=== PATIENT | male | born 1950 | race Hispanic/Latino ===

== ENCOUNTER 2019-06-30 17:01 | Observation (INO) | payer MEDICARE ==
[~2019-06-30] VITALS: Ht 180.3 cm; Wt 77.6 kg
[~2019-06-30 17:01] MED LIST: ASPIRIN325 MG PO; ASPIRIN81 MG PO; ATORVASTATIN CA20 MG PO; EFFIENT10 MG PO; LEVAQUIN500 MG PO; LIPITOR20 MG PO; METOPROLOL TART25 MG PO; NITROGLYCERIN0.4 MG SL; PLAVIX75 MG PO; PRAVASTATIN SOD20 MG PO; SIMVASTATIN80 MG PO
[2019-06-30] MEDS ORDERED: ONDANSETRON HCL INJ 2MG/ML 2ML 2 MG/ML VIAL IV ONE (17:41)
[2019-06-30] MEDS ORDERED: MORPHINE SULFATE INJ 4 MG/ML INJ 1ML IV ONE (17:41)
[2019-06-30] MEDS ORDERED: ENOXAPARIN SODIUM INJ 100 MG/ML SYR SC STA (17:41)
[2019-06-30] MEDS ORDERED: SODIUM CHLORIDE 0.9% 1000ML 1,000 ML IV STA (17:41)
[2019-06-30] MEDS ORDERED: PANTOPRAZOLE 40 MG 10ML VIAL IV ONE (17:41)
[2019-06-30] MEDS ORDERED: FAMOTIDINE 20 MG/2 ML VIAL IV ONE (17:41)
[2019-06-30] MEDS ORDERED: METOPROLOL TARTRATE 25 MG TAB PO SCH (17:45)
[2019-06-30] MEDS ORDERED: MORPHINE SULFATE 2 MG/ML SYR 1ML IV PRN (17:45)
[2019-06-30] MEDS ORDERED: ASPIRIN 81 MG CHEW TAB PO ONE (17:45)
[2019-06-30] MEDS ORDERED: ONDANSETRON HCL INJ 2MG/ML 2ML 2 MG/ML VIAL IV PRN (17:45)
[2019-06-30] MEDS ORDERED: ENOXAPARIN SODIUM INJ 100 MG/ML SYR SC SCH (17:45)
[2019-06-30] MEDS ORDERED: NITROGLYCERIN 0.4 MG SUBL SL PRN (17:45)
[2019-06-30] MEDS ORDERED: SODIUM CHLORIDE FLUSH 10 ML SYR INJ PRN (17:45)
[2019-06-30] MEDS ORDERED: ENOXAPARIN INJ 80 MG/0.8 ML SYR SC ONE (18:00)
[2019-06-30] MEDS: FAMOTIDINE 20 MG/2 ML VIAL IV SCH (18:41)
[2019-06-30 18:49] LABS: BASOPHILS % 0.2 % (0.0-1.0); EOSINOPHILS # (AUTO) 0.1 (0.0-0.4); EOSINOPHILS % 2.2 % (0.0-6.0); HEMATOCRIT 44.7 % (38.2-49.6); HEMOGLOBIN 15.2 g/dL (14.0-18.0); LYMPHOCYTES # (AUTO) 1.5 (1.0-3.2); LYMPHOCYTES % 22.9 % (18.0-39.1); MEAN CORPUSCULAR VOLUME 91.2 fL (81-99); MONOCYTES # (AUTO) 0.6 (0.2-0.8); MONOCYTES % 8.8 % (4.4-11.3); NEUTROPHILS # (AUTO) 4.2 (2.1-6.9); NEUTROPHILS % 65.3 % (38.7-80.0); PLATELET COUNT 200 x10e3/uL (140-360)
[2019-06-30] MEDS: METOPROLOL TARTRATE 25 MG TAB PO SCH (18:57)
[2019-06-30] MEDS: ENOXAPARIN INJ 80 MG/0.8 ML SYR SC SCH (18:57)
[2019-06-30 19:01] LABS: INR 0.91; PROTHROMBIN TIME 12.7 seconds (11.9-14.5)
[2019-06-30 19:02] LABS: PARTIAL THROMBOPLASTIN TIME 33.9 seconds (23.8-35.5)
[2019-06-30 19:12] LABS: ALANINE AMINOTRANSFERASE 20 IU/L (0-55); ALBUMIN 4.3 g/dL (3.5-5.0); ALBUMIN/GLOBULIN RATIO 1.4 (0.8-2.0); ALKALINE PHOSPHATASE 80 IU/L (40-150); ANION GAP 11.9 mmol/L (8-16); BLOOD UREA NITROGEN 10 mg/dL (7-26); BUN/CREATININE RATIO 22 (6-25); CALCIUM 9.5 mg/dL (8.4-10.2); CARBON DIOXIDE 25 mmol/L (22-29); CHLORIDE 104 mmol/L (98-107); CREATININE, SERUM 0.45 mg/dL (0.72-1.25); EST GLOMERULAR FILTRATION RATE > 60 ML/MIN (60-); GLUCOSE 98 mg/dL (74-118); LIPASE 21 U/L (8-78); MAGNESIUM 2.3 MG/DL (1.3-2.1); POTASSIUM 3.9 mmol/L (3.5-5.1); SODIUM 137 mmol/L (136-145)
[2019-06-30 19:28] LABS: CREATINE KINASE 183 IU/L (30-200)
--- NOTE | 2019-06-30 19:31 | Diagnostic Imaging Report ---
EXAMINATION: CHEST SINGLE (PORTABLE) INDICATION: Chest pressure ^ERMD ORDER ^[id number] ^1913 ^Y COMPARISON: None FINDINGS: TUBES and LINES: None. LUNGS: Lungs are well inflated. Lungs are clear. There is no evidence of pneumonia or pulmonary edema. PLEURA: No pleural effusion or pneumothorax. HEART AND MEDIASTINUM: The cardiomediastinal silhouette is unremarkable. BONES AND SOFT TISSUES: No acute osseous lesion. Soft tissues are unremarkable. UPPER ABDOMEN: No free air under the diaphragm. IMPRESSION: No acute thoracic abnormality. Signed by: Dr. Pastor Samuels M.D. on 06/30/2019 7:28 PM
[2019-06-30 19:35] LABS: THYROID STIMULATING HORMONE 1.439 uIU/mL (0.350-4.940)
[2019-06-30 19:46] LABS: BILIRUBIN,URINE NEGATIVE (NEGATIVE); CLARITY,URINE CLEAR (CLEAR); COLOR,URINE YELLOW (YELLOW); KETONES,URINE NEGATIVE (NEGATIVE); LEUKOCYTE ESTERASE ,URINE NEGATIVE (NEGATIVE); NITRITE,URINE NEGATIVE (NEGATIVE); PROTEIN,URINE DIPSTICK NEGATIVE (NEGATIVE); URINE UROBILINOGEN 0.2 mg/dL (0.2 - 1)
[2019-06-30 20:00] LABS: AMORPHOUS SEDIMENT,URINE FEW (FEW); BACTERIA,URINE RARE /HPF
[2019-06-30] MEDS ORDERED: ATORVASTATIN 20 MG TAB PO SCH (21:00)
[2019-06-30 21:17] VITALS: BP 115/63
[2019-06-30] MEDS: ATORVASTATIN 40 MG TAB PO SCH (23:09)
[2019-07-01] VITALS (8 sets, daily range): BP systolic 104–127; BP diastolic 58–69
--- NOTE | 2019-07-01 00:39 | NUR ---
PT 'S HOME MEDICATIONS RECONCILED,PT REPORTED THAT HE NO LONGER TAKES PRASUGREL(EFFIENT),UPDATED ON THE PT'S HOME MEDICATION LIST.
[2019-07-01] MEDS ORDERED: ENOXAPARIN INJ 80 MG/0.8 ML SYR SC SCH (06:00)
[2019-07-01] MEDS: METOPROLOL TARTRATE 25 MG TAB PO SCH ×2 (06:18→17:44)
[2019-07-01] MEDS: FAMOTIDINE 20 MG/2 ML VIAL IV SCH (06:18)
[2019-07-01] MEDS: ENOXAPARIN INJ 80 MG/0.8 ML SYR SC SCH ×2 (06:20→17:45)
--- NOTE | 2019-07-01 06:30 | NUR ---
CONSULT TO DR HUA CALLED.PROMPTED TO LEAVE MESSAGE.MESSAGE LEFT WITH CALL BACK NUMBER.
[2019-07-01 06:36] LABS: BASOPHILS % 0.2 % (0.0-1.0); EOSINOPHILS # (AUTO) 0.2 (0.0-0.4); EOSINOPHILS % 3.7 % (0.0-6.0); HEMATOCRIT 39.4 % (38.2-49.6); HEMOGLOBIN 13.6 g/dL (14.0-18.0); LYMPHOCYTES # (AUTO) 1.5 (1.0-3.2); LYMPHOCYTES % 29.8 % (18.0-39.1); MEAN CORPUSCULAR HEMOGLOBIN 31.1 pg (28-32); MEAN CORPUSCULAR HGB CONC 34.5 g/dL (31-35); MONOCYTES # (AUTO) 0.6 (0.2-0.8); MONOCYTES % 11.9 % (4.4-11.3); NEUTROPHILS # (AUTO) 2.6 (2.1-6.9); PLATELET COUNT 173 x10e3/uL (140-360); RED BLOOD COUNT 4.38 x10e6/uL (4.3-5.7)
[2019-07-01 06:44] LABS: CREATINE KINASE MB 3.8 ng/mL (0-5.0)
[2019-07-01 07:13] LABS: ALANINE AMINOTRANSFERASE 19 IU/L (0-55); ALBUMIN 3.4 g/dL (3.5-5.0); ALBUMIN/GLOBULIN RATIO 1.4 (0.8-2.0); ALKALINE PHOSPHATASE 71 IU/L (40-150); ANION GAP 12.6 mmol/L (8-16); BLOOD UREA NITROGEN 12 mg/dL (7-26); BUN/CREATININE RATIO 17 (6-25); CALCIUM 7.9 mg/dL (8.4-10.2); CARBON DIOXIDE 21 mmol/L (22-29); CHLORIDE 109 mmol/L (98-107); CHOL/HDL RATIO 4.2 (3.9-4.7); CHOLESTEROL 108 MD/DL (0-199); CREATININE, SERUM 0.72 mg/dL (0.72-1.25); EST GLOMERULAR FILTRATION RATE > 60 ML/MIN (60-); GLUCOSE 95 mg/dL (74-118); HDL CHOLESTEROL 26 MG/DL (40-60); LDL CHOLESTEROL 50 MG/DL (60-130); MAGNESIUM 2.3 MG/DL (1.3-2.1); PHOSPHORUS 2.8 MG/DL (2.3-4.7); POTASSIUM 3.6 mmol/L (3.5-5.1); SODIUM 139 mmol/L (136-145); TRIGLYCERIDES 161 MG/DL (0-149)
--- NOTE | 2019-07-01 07:15 | NUR ---
DR PEREZ IN UNIT,N/O RECEIVED TO STOP MEDICATION EFFIENT.
--- NOTE | 2019-07-01 07:16 | NUR ---
REPORT GIVEN TO ONCOMING NURSE,WALKING ROUNDS MADE.PT RESTING IN BED WITH NO S/S OF DISTRESS.
--- NOTE | 2019-07-01 07:34 | NUR ---
H&P cc: cp HPI: 68yoM, PCP , developed dizziness and left chest pressure with left face and left hand numbness. Last stress test 2018 was negative per pt. PMH: CAD s/p stent 11/2014, HTN, HLD, stroke PShx: coronary stent 2014 Allergies; see emr FH/SH; ; no cigs Meds; see MAR ROS: no f/c/s/N/V/D/SOUZA/vision changes/skin rash/back pain/leg pain v/s; revd PE tired appearing anicteric ns1s2 mod bs soft nt nd no e/t skin dry n. affect a&ox3; maloney labs/med; revd A/P: 68yoM Atypical CP CAD with hx stent HTn HLD PLAN BB/lovenox/asa/statin f/u echo and cardio eval Lovenox/pepcid Carlitos Eubanks MD, PhD.
[2019-07-01] MEDS: ASPIRIN 81 MG ENTERIC COATED PO SCH (08:59)
[2019-07-01] MEDS: LISINOPRIL 10 MG TAB PO SCH (08:59)
[2019-07-01] MEDS ORDERED: PRASUGREL 10 MG TAB PO SCH (09:00)
[2019-07-01] MEDS ORDERED: ONDANSETRON HCL 4 MG ORAL DISINTEGRATING TAB PO PRN (11:30)
[2019-07-01] MEDS ORDERED: REGADENOSON 0.4 MG/5 ML SYR IV ONE (14:11)
[2019-07-01 15:58] LABS: CREATINE KINASE MB 2.8 ng/mL (0-5.0)
[2019-07-01] MEDS: FAMOTIDINE 20 MG TAB PO SCH (17:44)
--- NOTE | 2019-07-01 19:07 | NUR ---
RECEIVED REPORT FROM PREVIOUS NURSE. CALL LIGHT WITHIN REACH. PATIENT SITTING IN THE CHAIR
[2019-07-01] MEDS: ATORVASTATIN 40 MG TAB PO SCH (21:38)
[2019-07-02 00:13] VITALS: BP 126/66
--- NOTE | 2019-07-02 03:31 | Consultation ---
DATE OF CONSULTATION: 07/01/2019 Cardiology consultation REASON FOR CONSULTATION: Chest pain. HISTORY OF PRESENT ILLNESS: This is a 68-year-old male with history of coronary artery disease, status post RCA, PCI, and hyperlipidemia, who presents with complaints of chest pain. He reports he has been having chest pressure for the last three days, which has been constant since onset. He states the pain is 4/10 in severity and associated with dizziness with radiation to the left arm and face, which he described as numbness. There is no shortness of breath, nausea, diaphoresis. Denies any edema, orthopnea or PND. REVIEW OF SYSTEMS: Negative except as per HPI. PAST MEDICAL HISTORY: 1. Coronary artery disease, status post STEMI with RCA, PCI. 2. Hyperlipidemia. PAST SURGICAL HISTORY: PCI. ALLERGIES: NO KNOWN DRUG ALLERGIES. MEDICATIONS: Please see medication list. SOCIAL HISTORY: No tobacco, alcohol, or illicit drugs. FAMILY HISTORY: Pertinent for father with heart disease. PHYSICAL EXAMINATION: VITAL SIGNS: Temperature 96.9 degrees, pulse 54, respiratory rate 20, blood pressure 111/59, oxygen saturation 98%. GENERAL: Well-developed, well-nourished man, in no acute distress, awake, alert. HEENT: Normocephalic, atraumatic. Pupils are equal. No scleral icterus. NECK: Supple. No thyromegaly or cervical lymphadenopathy. No carotid bruits. LUNGS: Clear to auscultation bilaterally. No wheeze or crackles. CARDIOVASCULAR: Normal rate, regular rhythm. No murmur. Normal S1, S2. ABDOMEN: Soft, nontender. EXTREMITIES: No edema. NEUROLOGIC: Nonfocal exam. LABORATORY DATA: WBC 4.87, hemoglobin 13.6, hematocrit 39.4, platelets 173. Sodium 139, potassium 3.6, chloride 109, CO2 21, BUN 12, creatinine 0.72. Troponin 0.118. Triglycerides 161, cholesterol 108, LDL 50, HDL 26. TELEMETRY: Sinus bradycardia. IMPRESSION: 1. Chest pain. 2. Coronary artery disease, status post RCA/STEMI, status post PCI in 2014. 3. Hypertension. 4. Dyslipidemia. RECOMMENDATIONS: The patient has ruled out for myocardial portion on serial cardiac biomarkers given risk factors. Plan to proceed with exercise nuclear stress test to evaluate for ischemia. Further recommendations pending test results. Continue aspirin and Effient as no evidence of myocardial infarction, can stop Lovenox and resume dual anti-platelet therapy. Continue current cardiac medications otherwise. Further recommendations pending test results. Thank you for this consult. We will continue to follow. Jenae Gabriel MD ABS/MODL /[id number]
[2019-07-02 05:42] VITALS: BP 119/74
--- NOTE | 2019-07-02 05:53 | NUR ---
IM- progress note O/N no events ROS: no f/c/s/N/V/D/SOUZA/vision changes/skin rash/back pain/leg pain v/s; revd PE tired appearing anicteric ns1s2 mod bs soft nt nd no e/t skin dry n. affect a&ox3; maloney labs/med; revd A/P: 68yoM Atypical CP CAD with hx stent HTn HLD PLAN BB/lovenox/asa/statin f/u echo and cardio eval Lovenox/pepcid d/c once cleared by cardio. Carlitos Eubanks MD, PhD.
[2019-07-02] MEDS ORDERED: FAMOTIDINE20 MG PO (05:54)
[2019-07-02] MEDS ORDERED: LISINOPRIL10 MG PO (05:54)
[2019-07-02] MEDS: ENOXAPARIN INJ 80 MG/0.8 ML SYR SC SCH (06:05)
[2019-07-02] MEDS: METOPROLOL TARTRATE 25 MG TAB PO SCH (06:05)
[2019-07-02] MEDS: FAMOTIDINE 20 MG TAB PO SCH (06:05)
--- NOTE | 2019-07-02 07:27 | NUR ---
Gave report to oncoming nurse. Patient in bed. Call light within reach.
[2019-07-02 08:33] VITALS: BP 128/75
[2019-07-02 09:57] VITALS: BP 128/75
[2019-07-02] MEDS: LISINOPRIL 10 MG TAB PO SCH (09:57)
[2019-07-02] MEDS: ASPIRIN 81 MG ENTERIC COATED PO SCH (09:57)
--- NOTE | 2019-07-03 09:04 | NUR ---
D/C summary Principal Dx: Atypical CP Secondary Dx: CAD with hx stent HTn HLD PLAN BB/lovenox/asa/statin f/u echo and cardio eval Lovenox/pepcid d/c once cleared by cardio. Echo reported as normal; Stress test reported as negative d/c home f/u with PCP 1 week stable d/c>35mins Carlitos Eubanks MD, PhD.
== END 2019-07-02 11:30 | disposition home or self-care (01) ==
LOC: ER 17:01 → INTOOBSV 18:09 → ERHOLD 18:09 → MED/SURG 20:35
PROVIDERS: ADMIT Internal Medicine; ATTEND Internal Medicine
DX: R07.89 Other chest pain (principal); R42 Dizziness and giddiness; E78.5 Hyperlipidemia, unspecified; I10 Essential (primary) hypertension; Z95.5 Presence of coronary angioplasty implant and graft; I25.10 Atherosclerotic heart disease of native coronary artery without angina pectoris; I25.2 Old myocardial infarction; Z86.73 Personal history of transient ischemic attack (TIA), and cerebral infarction without residual deficits
CPT/HCPCS: 36415 ×2; 71045; 78452; 80053 ×2; 80061; 81001; 82550 ×2; 82553 ×2; 83690; 83735 ×2; 83880; 84100; 84443; 84484 ×2; 85025 ×2; 85610; 85730; 87086; 93005; 93017; 93306; 99284; A9502; C9113; G0378 ×3; J1650 ×3; J2405; J2785; J7030

== ENCOUNTER → 2020-01-03 | Day surgery (SDC) | payer MEDICARE ==
[~2020-01-03] MED LIST changes: +FAMOTIDINE20 MG PO; +LIDOCAINE HCL 2% LOCAL 20 ML VIAL ONE; +LISINOPRIL10 MG PO
--- OUTSIDE RECORDS SUMMARY | 2020-01-03 09:25 | XMS REPORT ---
Author Author [facility] Organization [facility] Address Unknown Phone Unavailable Care Team Providers Care Flume Worker Name Role Phone WIL POMPA MD PP DERRICK PEREZ Unavailable Unavailable Payers Payer Name Policy Type Policy Number Effective Date Expiration D ate Ana Mariana [employer] [id number] 2018 00:00:00 Problems Condition Name Condition Details Condition Category Status Onset Date Resolution Date Last Treatment Date Treating Clinician Comments Chest pain Chest pain Problem Active 2015-08-19 00:00:00 ST elevation myocardial infarction (STEMI) ST elevatio n myocardial infarction (STEMI) Problem Active 2015-01-29 00:00:00 Hyperlipidemia Hyperlipidemia Problem Active Allergies, Adverse Reactions, Alerts This patient has no known allergies or adverse reactions. Medications Ordered Medication Name Filled Medication Name Start Date Stop Da te Current Medication? Ordering Clinician Indication Dosage Frequency Signature (SIG) Comments Components Famotidine 20 Mg Tab Famotidine 20 Mg Tab 2019-07-02 00:00:00 Yes Derrick Perez Md 20 Every 12 Hours Lisinopril 10 Mg Tablet Lisinopril 10 Mg Tablet 2019-07-02 00:00:00 Yes Derrick Perez Md 10 Daily Aspirin 325 Mg Tablet Aspirin 325 Mg Tablet Yes 325 Daily Atorvastatin Calcium 20 Mg Tablet Atorvastatin Calcium 20 Mg Tablet Yes 80 Today At 9:00PM Metoprolol Tartrate 25 Mg Tablet Metoprolol Tartrate 25 Mg Tablet Yes 12.5 Twice A Day Nitroglycerin 0.4 Mg Tab.subl Nitroglycerin 0.4 Mg Tab.subl Yes .4 Every 5 Minutes as needed for Chest Pain Prasugrel Hcl (Effient) 10 Mg Tablet, 10 Mg Oral Prasu grel Hcl (Effient) 10 Mg Tablet, 10 Mg Oral 2019-06-30 00:00:00 No 10 Daily Clopidogrel Bisulfate (Plavix) 75 Mg Tablet, 75 Mg Ora l Clopidogrel Bisulfate (Plavix) 75 Mg Tablet, 75 Mg Oral 2015-01-31 00:00:00 No 75 Daily Levofloxacin (Levaquin) 500 Mg Tablet, 500 Mg Oral Lev ofloxacin (Levaquin) 500 Mg Tablet, 500 Mg Oral 2015-01-31 00:00:00 No 500 Daily Metoprolol Tartrate 25 Mg Tablet, 12.5 Mg Oral Metopro lol Tartrate 25 Mg Tablet, 12.5 Mg Oral 2015-01-31 00:00:00 No 12.5 Daily Simvastatin 80 Mg Tablet, 80 Mg Oral Simvastatin 80 Mg Tablet, 8 0 Mg Oral 2015-01-31 00:00:00 No 80 Bedtime Aspirin 81 Mg Tab.chew, 81 Mg Oral Aspirin 81 Mg Tab.chew, 81 Mg Oral 2014-12-01 00:00:00 No 81 Daily Pravastatin Sodium 20 Mg Tablet, 20 Mg Oral Pravastati n Sodium 20 Mg Tablet, 20 Mg Oral 2014-12-01 00:00:00 No 20 Daily Atorvastatin Calcium (Lipitor) 20 Mg Tablet, 20 Mg Ora l Atorvastatin Calcium (Lipitor) 20 Mg Tablet, 20 Mg Oral 2014-11-29 00:00:00 No 20 Daily Encounters Start Date/Time End Date/Time Encounter Type Admission Type [facility] Care Department Encounter ID 2019-06-30 18:09:00 2019-07-02 11:30:00 Discharged Inpatient (obs) [address] [facility] [id number] Results Test Description Test Time Test Comments Text Results Atomic Results Result Comments Stress Test - Treadmill ONLY 2019-07-07 14:24:00 [place] [id number] [place] [address] Patient Name : KENYA MANCERA MR #: [id number] : 1950 Age/Sex: 68/M Adm Physician : DERRICK PEREZ MD Admit Date : 06/30/19 Location : MED/SURG Room/Bed : [facility] REPORT: Myoview Stress Test DATE OF STUDY: 07/01/2019 10:37:00 Stress Test - Treadmill ONLY PROCEDURE TITLE: Rest/stress single isotope SPECT imaging with pharmacologic stress and gated SPECT imaging. INDICATION: Chest pain. PROCEDURE IN DETAIL: Pharmacologic stress testing was performed with regadenoson per protocol. The heart rate was 56 beats per minute at rest and increased to 79 beats per minute during regadenoson infusion. The rest blood pressure was 142/79 mmHg and decreased to 136/72 mmHg, which is a normal response. Resting electrocardiogram demonstrated sinus bradycardia with ST and T-wave abnormalities. There were no ST-segment changes suggestive of myocardial ischemia. Myocardial perfusion imaging was performed at stress following the injection of 11 mCi of tetrofosmin. At peak pharmacologic effect, the patient was injected with 20.1 mCi of tetrofosmin. Gated post- stress tomographic imaging was performed. FINDINGS: The overall quality of study is fair. Left ventricular cavity is noted to be normal size on the rest and stress studies. SPECT images demonstrate a small moderate perfusion defect in the inferior wall at rest that improves with stress. Gated SPEC T imaging reveals normal myocardial thickening and wall motion. Left ventricular ejection fraction was calculated to be 59%. IMPRESSION: Myocardial perfusion imaging is abnormal. There is a small nontransmural scar in the basal inferior wall, cannot rule out attenuation artifact. Overall, left ventricular systolic function was normal without regional wall motion abnormalities. Hood Gabriel MD ABS/SULEIMANL /[id number] Signature Date Dictated By: HOOD GABRIEL MD Transcribed By: MODL on 07/07/19 <Electronically signed by HOOD GABRIEL MD><<Signature on File>>07/24/19 3404 COPY TO: Creatine Kinase MB 2019-07-01 16:02:00 Creatine Kinase MB (test code = 38553-1) 2.80 0-5.0 Troponin [id number] 15:21:00* Test Item Value Reference Range Comments Troponin I (test code = KYN1433) 0.118 0-0.300 Creatine Lfzudy5315-40-17 13:27:00* Test Item Value Reference Range Comments Creatine Kinase (test code = 2157-6) 153 30-200 Sodium Nxqng9274-00-80 07:18:00* Test Item Value Reference Range Comments Sodium Level (test code = 2951-2) 139 136-145 Potassium Itkpq3900-18-69 07:18:00* Test Item Value Reference Range Comments Potassium Level (test code = 2823-3) 3.6 3.5-5.1 Chloride Snjjn5917-05-88 07:18:00* Test Item Value Reference Range Comments Chloride Level (test code = 2075-0) 109 98-107 Carbon Dioxide Qgnpt6806-78-46 07:18:00* Test Item Value Reference Range Comments Carbon Dioxide Level (test code = 2028-9) 21 22-29 Anion Zni6464-04-63 07:18:00* Test Item Value Reference Range Comments Anion Gap (test code = 80459-1) 12.6 8-16 Blood Urea Kbaqwxwz8009-12-60 07:18:00* Test Item Value Reference Range Comments Blood Urea Nitrogen (test code = 3094-0) 12 7-26 Voawnjlsag4813-19-45 07:18:00* Test Item Value Reference Range Comments Creatinine (test code = 2160-0) 0.72 0.72-1.25 BUN/Creatinine Fmaek2926-47-97 07:18:00* Test Item Value Reference Range Comments BUN/Creatinine Ratio (test code = 3097-3) 17 6-25 Estimat Glomerular Filtration Jkox3873-38-09 07:18:00* Test Item Value Reference Range Comments Estimat Glomerular Filtration Rate (test code = 110838697) > 60 >60 Ranges were taken from the National Kidney Disease Education Program and the [facility] [employer] literature.Reference ranges:60 or greater: Cfeowv98-20 ( for 3 consecutive months): Chronic kidney disease 15 or less: Kidney failure Glucose Vzpob1207-01-77 07:18:00* Test Item Value Reference Range Comments Glucose Level (test code = WQS7109) 95 74-118 Calcium Syxok1615-28-10 07:18:00* Test Item Value Reference Range Comments Calcium Level (test code = 80704-7) 7.9 8.4-10.2 Phosphorus Gdetw3035-34-37 07:18:00* Test Item Value Reference Range Comments Phosphorus Level (test code = WIY0852) 2.8 2.3-4.7 Magnesium Wbzmt3214-23-77 07:18:00* Test Item Value Reference Range Comments Magnesium Level (test code = 95046-7) 2.3 1.3-2.1 Total Ozyzifkmn7449-53-48 07:18:00* Test Item Value Reference Range Comments Total Bilirubin (test code = 1975-2) 0.6 0.2-1.2 Aspartate Amino Transf (AST/SGOT)2019-07-01 07:18:00* Test Item Value Reference Range Comments Aspartate Amino Transf (AST/SGOT) (test code = Aspartate Amino Transf (AST/SGOT)) 22 5-34 Alanine Aminotransferase (ALT/SGPT)2019-07-01 07:18:00* Test Item Value Reference Range Comments Alanine Aminotransferase (ALT/SGPT) (test code = 1742-6) 19 0-55 Total Xrclfee3138-10-21 07:18:00* Test Item Value Reference Range Comments Total Protein (test code = 2885-2) 5.8 6.5-8.1 Euxnuuu5742-29-88 07:18:00* Test Item Value Reference Range Comments Albumin (test code = 1751-7) 3.4 3.5-5.0 Rcutxgkz5334-25-20 07:18:00* Test Item Value Reference Range Comments Globulin (test code = 35001-6) 2.4 2.3-3.5 Albumin/Globulin Pzfua8680-01-97 07:18:00* Test Item Value Reference Range Comments Albumin/Globulin Ratio (test code = 1759-0) 1.4 0.8- 2.0 Alkaline Fwwtawfopod7373-78-15 07:18:00* Test Item Value Reference Range Comments Alkaline Phosphatase (test code = 6768-6) 71 40-150 Triglycerides Xlomq2390-93-04 07:18:00* Test Item Value Reference Range Comments Triglycerides Level (test code = 2571-8) 161 0-149 Cholesterol Rzijs7438-04-26 07:18:00* Test Item Value Reference Range Comments Cholesterol Level (test code = 2093-3) 108 0-199 Less than 200 mg/dL Low Vjsk110 - 239 mg/dL Borderline Kiuh776 m g/dl and greater High Risk LDL Olzkurvlxny6369-46-63 07:18:00* Test Item Value Reference Range Comments LDL Cholesterol (test code = 2089-1) 50 60-130 HDL Zwuwcbmeard1587-10-47 07:18:00* Test Item Value Reference Range Comments HDL Cholesterol (test code = 2085-9) 26 40-60 Cholesterol/HDL Huqgk2283-50-16 07:18:00* Test Item Value Reference Range Comments Cholesterol/HDL Ratio (test code = 9830-1) 4.2 3.9-4 .7 White Blood Flljb4666-64-82 06:47:00* Test Item Value Reference Range Comments White Blood Count (test code = 6690-2) 4.87 4.8-10.8 Red Blood Oxluw6538-11-71 06:47:00* Test Item Value Reference Range Comments Red Blood Count (test code = 789-8) 4.38 4.3-5.7 Mozihzbafx8707-25-44 06:47:00* Test Item Value Reference Range Comments Hemoglobin (test code = 45239-5) 13.6 14.0-18.0 Rgloeifcro6830-95-37 06:47:00* Test Item Value Reference Range Comments Hematocrit (test code = 4544-3) 39.4 38.2-49.6 Mean Corpuscular Yprebt0206-09-35 06:47:00* Test Item Value Reference Range Comments Mean Corpuscular Volume (test code = 787-2) 90.0 81-9 9 Mean Corpuscular Nlumavswjg5201-47-14 06:47:00* Test Item Value Reference Range Comments Mean Corpuscular Hemoglobin (test code = 785-6) 31.1 28-32 Mean Corpuscular Hemoglobin Sgounqf7272-39-48 06:47:00* Test Item Value Reference Range Comments Mean Corpuscular Hemoglobin Concent (test code = 786-4) 34.5 31-35 Red Cell Distribution Pynsb5218-65-60 06:47:00* Test Item Value Reference Range Comments Red Cell Distribution Width (test code = 52159-4) 12.0 11.7-14.4 Platelet Sxfjn1169-25-81 06:47:00* Test Item Value Reference Range Comments Platelet Count (test code = 777-3) 173 140-360 Neutrophils (%) (Auto)2019-07-01 06:47:00* Test Item Value Reference Range Comments Neutrophils (%) (Auto) (test code = 69903-7) 54.0 38. 7-80.0 Lymphocytes (%) (Auto)2019-07-01 06:47:00* Test Item Value Reference Range Comments Lymphocytes (%) (Auto) (test code = 736-9) 29.8 18.0- 39.1 Monocytes (%) (Auto)2019-07-01 06:47:00* Test Item Value Reference Range Comments Monocytes (%) (Auto) (test code = 5905-5) 11.9 4.4-11 .3 Eosinophils (%) (Auto)2019-07-01 06:47:00* Test Item Value Reference Range Comments Eosinophils (%) (Auto) (test code = 713-8) 3.7 0.0-6 .0 Basophils (%) (Auto)2019-07-01 06:47:00* Test Item Value Reference Range Comments Basophils (%) (Auto) (test code = 706-2) 0.2 0.0-1.0 IM GRANULOCYTES %2019-07-01 06:47:00* Test Item Value Reference Range Comments IM GRANULOCYTES % (test code = IM GRANULOCYTES %) 0.4 0.0-1.0 Neutrophils # (Auto)2019-07-01 06:47:00* Test Item Value Reference Range Comments Neutrophils # (Auto) (test code = 751-8) 2.6 2.1-6.9 Lymphocytes # (Auto)2019-07-01 06:47:00* Test Item Value Reference Range Comments Lymphocytes # (Auto) (test code = 67728-0) 1.5 1.0-3 .2 Monocytes # (Auto)2019-07-01 06:47:00* Test Item Value Reference Range Comments Monocytes # (Auto) (test code = 742-7) 0.6 0.2-0.8 Eosinophils # (Auto)2019-07-01 06:47:00* Test Item Value Reference Range Comments Eosinophils # (Auto) (test code = 711-2) 0.2 0.0-0.4 Basophils # (Auto)2019-07-01 06:47:00* Test Item Value Reference Range Comments Basophils # (Auto) (test code = 704-7) 0.0 0.0-0.1 Absolute Immature Granulocyte (iezt4488-00-54 06:47:00* Test Item Value Reference Range Comments Absolute Immature Granulocyte (auto (cristy t code = Absolute Immature Granulocyte (auto) 0.02 0-0.1 Urine QMD6000-79-12 20:00:00* Test Item Value Reference Range Comments Urine WBC (test code = 5821-4) NONE 0-5 Urine QWX8452-50-88 20:00:00* Test Item Value Reference Range Comments Urine RBC (test code = 49764-1) NONE 0-5 Urine Shgvtzxq2939-46-21 20:00:00* Test Item Value Reference Range Comments Urine Bacteria (test code = 43826-2) RARE NONE Urine Epithelial Twmvw4497-52-78 20:00:00* Test Item Value Reference Range Comments Urine Epithelial Cells (test code = 36060-0) NONE NON E Urine Amorphous Hdbiqfpg9320-90-28 20:00:00* Test Item Value Reference Range Comments Urine Amorphous Sediment (test code = 8246-1) FEW FE W Urine Ytgcn5431-07-40 20:00:00* Test Item Value Reference Range Comments Urine Sperm (test code = 8248-7) PRESENT NONE Urine Tdlmj4746-82-74 19:47:00* Test Item Value Reference Range Comments Urine Color (test code = 5778-6) YELLOW YELLOW Urine Lsehdef1957-00-31 19:47:00* Test Item Value Reference Range Comments Urine Clarity (test code = 13477-8) CLEAR CLEAR Urine Specific Fwlaogt0461-55-79 19:47:00* Test Item Value Reference Range Comments Urine Specific [place] (test code = 5811-5) 1.010 1.01 0-1.025 Urine kW7163-61-60 19:47:00* Test Item Value Reference Range Comments Urine pH (test code = 70816-3) 6 5-7 Urine Leukocyte Rrryklub3133-34-09 19:47:00* Test Item Value Reference Range Comments Urine Leukocyte Esterase (test code = 27824-7) NEGATIVE N EGATIVE Urine Qcxnsgt9011-35-01 19:47:00* Test Item Value Reference Range Comments Urine Nitrite (test code = 97623-2) NEGATIVE NEGATIVE Urine Wrzcigd5594-96-73 19:47:00* Test Item Value Reference Range Comments Urine Protein (test code = 21226-8) NEGATIVE NEGATIVE Urine Glucose (UA)2019-06-30 19:47:00* Test Item Value Reference Range Comments Urine Glucose (UA) (test code = 65420-1) NEGATIVE NEGATIV E Urine Nwtqxte1199-75-00 19:47:00* Test Item Value Reference Range Comments Urine Ketones (test code = 23271-5) NEGATIVE NEGATIVE Urine Wmnbnletpcwv6131-47-28 19:47:00* Test Item Value Reference Range Comments Urine Urobilinogen (test code = 75156-8) 0.2 0.2-1 Urine Rnagxxkft4008-91-53 19:47:00* Test Item Value Reference Range Comments Urine Bilirubin (test code = 1977-8) NEGATIVE NEGATIVE Urine Nqgka3667-06-21 19:47:00* Test Item Value Reference Range Comments Urine Blood (test code = 96509-2) TRACE NEGATIVE Thyroid Stimulating Hormone (TSH)2019-06-30 19:35:00* Test Item Value Reference Range Comments Thyroid Stimulating Hormone (TSH) (test code = 02244-7) 1.439 0.350-4.940 CHEST SINGLE (PORTABLE)2019-06-30 19:27:00 [facility] [address] [address] Patient Name: KENYA MANCERA MR #: [id number] : 1950 Age/Sex: 68/M Req #: [id number] Adm Physician: DERRICK PEREZ MD Ordered by: KILEY CARBALLO MD, MD Report #: [id number] Location: [facility] Room/Bed: [place] [address] Procedure: [id number] 6 DX/CHEST SINGLE (PORTABLE) Exam Date: 06/30/19 Time: 1912 REPORT STATUS: Signed EXAMINATION: CHEST SINGLE (PORTABLE) INDICATION: Chest pressure ERMD ORDER [id number] 1912 Y COMPARISON: None FIN DINGS: TUBES and LINES: None. LUNGS: Lungs are well inflated. Lungs ar e clear. There is no evidence of pneumonia or pulmonary edema. PLEURA: No pleural effusion or pneumothorax. HEART AND MEDIASTINUM: The cardiomed iastinal silhouette is unremarkable. BONES AND SOFT TISSUES: No acute osseous lesion. Soft tissues are unremarkable. UPPER ABDOMEN: No free ai r under the diaphragm. IMPRESSION: No acute thoracic abnormality. Signed by: Dr. Luz Angulo M.D. on 06/30/2019 7:28 PM Dictated By: LUZ ANGULO MD, MD 27 Transcribed By: HITESH on 06/30/191927 COPY TO: KILEY CARBALLO B-Type Natriuretic Vzymfzw0676-84-14 19:17:00* Test Item Value Reference Range Comments B-Type Natriuretic Peptide (test code = 24227-5) 83.4 0-100 Mohkga6956-52-92 19:13:00* Test Item Value Reference Range Comments Lipase (test code = 3040-3) 21 8-78 Prothrombin Hpej1999-71-99 19:04:00* Test Item Value Reference Range Comments Prothrombin Time (test code = 5902-2) 12.7 11.9-14.5 Prothromb Time International Czaiv7612-10-61 19:04:00* Test Item Value Reference Range Comments Prothromb Time International Ratio (test code = 6301-6) 0.91 Oral Anticoagulant Therapy INR Values:1. Low Intensity Therapy 1.5 - 2.02 . Moderate Intensity Therapy 2.0 - 3.03. High Intensity Therapy(1) 2.5 - 3. 54. High Intensity Therapy(2) 3.0 - 4.05. Panic Value INR > 5.0 Activated Partial Thromboplast Ocbo7675-12-24 19:04:00* Test Item Value Reference Range Comments Activated Partial Thromboplast Time (test code = 39672-4) 33.9 23.8-35.5
[2020-01-03 12:00] VITALS: BP 134/78
--- NOTE | 2020-01-03 14:33 | Operative Report ---
DATE OF PROCEDURE: 01/03/2020 SURGEON: Gilberto Beck MD PROCEDURE PERFORMED: Insertable loop recorder. INDICATION: Palpitations. COMPLICATIONS: None. BLOOD LOSS: Minimal. RECOMMENDATIONS: Remote monitoring. PROCEDURE IN DETAIL: Left anterior chest wall was anesthetized using subcutaneous lidocaine. A [employer] LINQ, serial #[id number] was inserted without complication. Skin approximated using Dermabond. The patient was discharged home the same day. MD REJI BarreraB/MODL /[id number]
== END | disposition home or self-care (01) ==
LOC: CATH LAB 09:23
PROVIDERS: ATTEND Internal Medicine Interventional Cardiology
DX: I48.91 Unspecified atrial fibrillation (principal); I25.10 Atherosclerotic heart disease of native coronary artery without angina pectoris; I25.2 Old myocardial infarction; E78.00 Pure hypercholesterolemia, unspecified; I10 Essential (primary) hypertension; E78.5 Hyperlipidemia, unspecified; Z01.812 Encounter for preprocedural laboratory examination; Z11.59 Encounter for screening for other viral diseases; Z79.82 Long term (current) use of aspirin
CPT/HCPCS: 33285; C1764; 87635; J2001

== ENCOUNTER 2023-02-16 19:07 | Inpatient (IN) | payer MEDICARE ==
[~2023-02-16] VITALS: Ht 177.8 cm; Wt 78.5 kg
[~2023-02-16 19:07] MED LIST changes: -LIDOCAINE HCL 2% LOCAL 20 ML VIAL ONE
[2023-02-16] MEDS ORDERED: SODIUM CHLORIDE 0.9% 1000ML 1,000 ML IV STA (19:25)
[2023-02-16] MEDS ORDERED: ACETAMINOPHEN 325 MG TAB PO STA (19:26)
[2023-02-16 19:44] LABS: BASOPHILS % 0.1 % (0.0-1.0); EOSINOPHILS % 0.4 % (0.0-6.0); HEMATOCRIT 36.1 % (38.2-49.6); HEMOGLOBIN 12.5 g/dL (14.0-18.0); LYMPHOCYTES # (AUTO) 0.7 (1.0-3.2); LYMPHOCYTES % 8.8 % (18.0-39.1); MEAN CORPUSCULAR HEMOGLOBIN 30.6 pg (28-32); MEAN CORPUSCULAR HGB CONC 34.6 g/dL (31-35); MEAN CORPUSCULAR VOLUME 88.5 fL (81-99); MONOCYTES # (AUTO) 0.9 (0.2-0.8); MONOCYTES % 11.9 % (4.4-11.3); NEUTROPHILS % 78.4 % (38.7-80.0); PLATELET COUNT 197 x10e3/uL (140-360); RED BLOOD COUNT 4.08 x10e6/uL (4.3-5.7); RED CELL DISTRIBUTION WIDTH 12.6 % (11.7-14.4)
[2023-02-16 19:59] LABS: ALBUMIN 3.3 g/dL (3.5-5.0); ALBUMIN/GLOBULIN RATIO 0.8 (0.8-2.0); ANION GAP 15.4 mmol/L (8-16); CALCIUM 8.7 mg/dL (8.4-10.2); CREATININE, SERUM 0.93 mg/dL (0.72-1.25); POTASSIUM 3.4 mmol/L (3.5-5.1)
[2023-02-16] MEDS ORDERED: IOPAMIDOL 370 MG/ML 100 ML INFUS..BTL INJ ONE (20:17)
[2023-02-16 20:20] LABS: CLARITY,URINE SL CLOUDY (CLEAR); COLOR,URINE YELLOW (YELLOW); KETONES,URINE 1+ (NEGATIVE); LEUKOCYTE ESTERASE ,URINE NEGATIVE (NEGATIVE); NITRITE,URINE NEGATIVE (NEGATIVE); PROTEIN,URINE DIPSTICK 2+ (NEGATIVE); URINE UROBILINOGEN 1 mg/dL (0.2 - 1)
[2023-02-16 20:32] LABS: BACTERIA,URINE MODERATE /HPF
[2023-02-16] MEDS ORDERED: Morphine 4mg INJECTION 4 MG/ML INJ IV PRN (22:45)
[2023-02-16] MEDS ORDERED: ONDANSETRON HCL INJ 2MG/ML 2ML 2 MG/ML VIAL IV PRN (22:45)
[2023-02-16] MEDS ORDERED: SODIUM CHLORIDE FLUSH 10 ML SYR INJ PRN (22:45)
[2023-02-16 23:40] VITALS: PULSE 84; RESP 22; O2SAT 100
[2023-02-17] VITALS (10 sets, daily range): BP systolic 123–128; BP diastolic 64–87; PULSE 65–91; RESP 18–20; TEMP 98.8–101; O2SAT 95–98
[2023-02-17 04:57] LABS: BASOPHILS % 0.2 % (0.0-1.0); EOSINOPHILS % 0.4 % (0.0-6.0); HEMATOCRIT 32.6 % (38.2-49.6); HEMOGLOBIN 11.2 g/dL (14.0-18.0); LYMPHOCYTES # (AUTO) 0.5 (1.0-3.2); LYMPHOCYTES % 9.1 % (18.0-39.1); MEAN CORPUSCULAR HEMOGLOBIN 30.1 pg (28-32); MEAN CORPUSCULAR HGB CONC 34.4 g/dL (31-35); MEAN CORPUSCULAR VOLUME 87.6 fL (81-99); MONOCYTES # (AUTO) 0.6 (0.2-0.8); NEUTROPHILS # (AUTO) 4.4 (2.1-6.9); NEUTROPHILS % 79.8 % (38.7-80.0); PLATELET COUNT 178 x10e3/uL (140-360); RED BLOOD COUNT 3.72 x10e6/uL (4.3-5.7); RED CELL DISTRIBUTION WIDTH 12.6 % (11.7-14.4)
[2023-02-17 05:17] LABS: ALBUMIN 2.7 g/dL (3.5-5.0); ALBUMIN/GLOBULIN RATIO 0.8 (0.8-2.0); ANION GAP 13.5 mmol/L (8-16); CREATININE, SERUM 0.79 mg/dL (0.72-1.25); POTASSIUM 3.5 mmol/L (3.5-5.1)
[2023-02-17] MEDS ORDERED: METRONIDAZOLE 500 MG TAB PO SCH (10:00)
[2023-02-17] MEDS: ACETAMINOPHEN 325 MG TAB PO PRN ×3 (11:35→20:44)
[2023-02-17] MEDS ORDERED: SODIUM CHLORIDE 0.9% 250ML 250 ML ONE (11:37)
[2023-02-17] MEDS: SODIUM CHLORIDE 0.9% 1000ML 1,000 ML IV SCH (15:22)
[2023-02-17] MEDS: METRONIDAZOLE 500MG/NS 100ML 100 ML IV SCH (17:10)
[2023-02-18] VITALS (10 sets, daily range): BP systolic 94–144; BP diastolic 57–75; PULSE 63–82; RESP 16–20; TEMP 99–100.4; O2SAT 94–98
[2023-02-18] MEDS: ALBUTEROL/IPRATROPIUM 3 ML NEB NEB PRN (01:05)
[2023-02-18] MEDS ORDERED: GUAIFENESIN/DEXTROMETHORPHAN LIQD 5 ML UDC NG SCH (01:45)
[2023-02-18] MEDS ORDERED: BENZONATATE 100 MG CAP PO SCH (01:45)
[2023-02-18] MEDS: METRONIDAZOLE 500MG/NS 100ML 100 ML IV SCH ×4 (02:00→17:05)
[2023-02-18] MEDS: ACETAMINOPHEN 325 MG TAB PO PRN ×2 (03:23→16:59)
[2023-02-18] MEDS: SODIUM CHLORIDE 0.9% 1000ML 1,000 ML IV SCH (07:10)
[2023-02-18] MEDS: GUAIFENESIN/DEXTROMETHORPHAN LIQD 5 ML UDC NG SCH ×3 (09:12→21:43)
[2023-02-18] MEDS: BENZONATATE 100 MG CAP PO SCH ×3 (09:14→21:43)
[2023-02-18 09:53] LABS: BASOPHILS % 0.2 % (0.0-1.0); EOSINOPHILS % 0.5 % (0.0-6.0); HEMATOCRIT 30.1 % (38.2-49.6); HEMOGLOBIN 10.5 g/dL (14.0-18.0); LYMPHOCYTES # (AUTO) 0.6 (1.0-3.2); MEAN CORPUSCULAR HEMOGLOBIN 30.6 pg (28-32); MEAN CORPUSCULAR HGB CONC 34.9 g/dL (31-35); MEAN CORPUSCULAR VOLUME 87.8 fL (81-99); MONOCYTES # (AUTO) 0.7 (0.2-0.8); MONOCYTES % 10.5 % (4.4-11.3); NEUTROPHILS # (AUTO) 4.9 (2.1-6.9); NEUTROPHILS % 78.2 % (38.7-80.0); PLATELET COUNT 165 x10e3/uL (140-360); RED BLOOD COUNT 3.43 x10e6/uL (4.3-5.7)
[2023-02-18 10:02] LABS: ANION GAP 12.3 mmol/L (8-16); CREATININE, SERUM 0.79 mg/dL (0.72-1.25); POTASSIUM 3.3 mmol/L (3.5-5.1)
[2023-02-18] MEDS ORDERED: METHYLPREDNISOLONE SOD SUCC 40 MG/ML VIAL 1ML IV SCH (16:30)
[2023-02-18] MEDS: DEXAMETHASONE SOD PHOS 10 MG/1 ML VIAL IV SCH (17:00)
[2023-02-19 00:03] VITALS: BP 111/69; PULSE 59; RESP 18; TEMP 97.6; O2SAT 96
[2023-02-19] MEDS: SODIUM CHLORIDE 0.9% 1000ML 1,000 ML IV SCH (00:39)
[2023-02-19] MEDS: METRONIDAZOLE 500MG/NS 100ML 100 ML IV SCH ×2 (02:34→10:00)
[2023-02-19] MEDS: ALBUTEROL/IPRATROPIUM 3 ML NEB NEB PRN (02:50)
[2023-02-19 03:00] VITALS: PULSE 74; RESP 16; O2SAT 96
[2023-02-19 04:00] VITALS: BP 103/57; PULSE 64; RESP 18; TEMP 98.3
[2023-02-19] MEDS: BENZONATATE 100 MG CAP PO SCH (06:12)
[2023-02-19] MEDS: GUAIFENESIN/DEXTROMETHORPHAN LIQD 5 ML UDC NG SCH (06:12)
[2023-02-19] MEDS: DEXAMETHASONE SOD PHOS 10 MG/1 ML VIAL IV SCH (06:12)
[2023-02-19 08:00] VITALS: BP 103/57; PULSE 64; RESP 18; TEMP 98.3; O2SAT 96
[2023-02-19 08:20] VITALS: BP 116/68; PULSE 51; RESP 17; TEMP 97.8; O2SAT 98
[2023-02-19 09:00] VITALS: PULSE 49; RESP 18; O2SAT 95
[2023-02-19] MEDS ORDERED: METRONIDAZOLE500 MG PO (09:53)
[2023-02-19] MEDS ORDERED: AZITHROMYCIN250 MG PO (09:53)
[2023-02-19] MEDS ORDERED: PREDNISONE20 MG PO (09:53)
[2023-02-19] MEDS ORDERED: CEPHALEXIN500 MG PO (09:53)
[2023-02-19] MEDS ORDERED: Benzonatate PO (09:53)
[2023-02-19] MEDS ORDERED: POTASSIUM CHLORIDE 20 MEQ TAB CR PO ONE (10:30)
[2023-02-19] MEDS ORDERED: ONDANSETRON HCL 4 MG ORAL DISINTEGRATING TAB PO PRN (11:15)
[2023-02-19] MEDS ORDERED: METRONIDAZOLE 500 MG TAB PO SCH (12:00)
[2023-02-20] MEDS ORDERED: AZITHROMYCIN 250 MG TAB PO SCH (06:00)
== END 2023-02-19 11:20 | disposition home or self-care (01) | DRG 640 ==
LOC: ER 19:18 → ERHOLD 22:34 → INTOOBSV 22:34 → MED/SURG 02-17 03:21 → OBSVTOIN 02-18 09:56
PROVIDERS: ADMIT Internal Medicine; ATTEND Internal Medicine
DX: E87.1 Hypo-osmolality and hyponatremia (principal); J18.8 Other pneumonia, unspecified organism; M62.82 Rhabdomyolysis; N39.0 Urinary tract infection, site not specified; A04.9 Bacterial intestinal infection, unspecified; R65.10 Systemic inflammatory response syndrome (SIRS) of non-infectious origin without acute organ dysfunction; I50.22 Chronic systolic (congestive) heart failure; E87.6 Hypokalemia; K57.30 Diverticulosis of large intestine without perforation or abscess without bleeding; K76.9 Liver disease, unspecified; K40.90 Unilateral inguinal hernia, without obstruction or gangrene, not specified as recurrent; I25.10 Atherosclerotic heart disease of native coronary artery without angina pectoris; E78.5 Hyperlipidemia, unspecified; I11.0 Hypertensive heart disease with heart failure; Z20.822 Contact with and (suspected) exposure to COVID-19; Z95.5 Presence of coronary angioplasty implant and graft; Z79.82 Long term (current) use of aspirin
CPT/HCPCS: 0223U; 36415; 70450; 71045; 74177; 80048; 80053; 81001; 82550; 83880; 84484; 85025; 87040; 87324; 87449; 93005; 93306; 94640; 94799; 99284; G0378; J1100; J2543; J7030; J7050; Q9967